=== PATIENT | female | born 1965 | race Caucasian/White ===

== ENCOUNTER 2021-04-01 09:22 | Day surgery (SDC) | payer MEDICARE ==
[~2021-04-01] VITALS: Ht 165.1 cm; Wt 127.9 kg
[~2021-04-01 09:22] MED LIST: AMIT25TA17 PO; AMIT50TA PO; CEFUROXIME 1MG/0.1ML INTRACAMERAL INJ As Ordered ONE; CENT1TAB PO; DIPH25CA32 PO; FERR325T19 PO; FOLI1TAB11 PO; FURO40TA2 PO; GABA-1171 PO; LIDOCAINE 1% SDV 5ML VIAL As Ordered ONE; LR 1,000 ML IV ONE; MAPA500C PO; METO1TAB7 PO; OYST500T94 PO; PANT40TA29 PO; ROPI0.5T3 PO; SPIR-10 PO; THIA100T22 PO
[2021-04-01] MEDS ORDERED: BSS IRR 500ML/OMIDRIA 4ML IRR BAG (OR ONLY) As Ordered ONE (09:54)
[2021-04-01] MEDS ORDERED: TROPICAMIDE 1% OPHTH SOLN 2ML OD SCH (10:05)
[2021-04-01] MEDS ORDERED: OFLOXACIN 0.3 % (OCUFLOX) OPTH SOL 5ML OD SCH (10:05)
[2021-04-01] MEDS ORDERED: PROPARACAINE 0.5% OPHTH SOL 15ML OD ONE (10:05)
[2021-04-01] MEDS: PHENYLEPHRINE 2.5% OPHTH SOL 2ML OD SCH ×2 (10:12→11:20)
[2021-04-01] MEDS ORDERED: MIDAZOLAM INJ 2MG/2ML VIAL (J2250 PER 1MG) As Ordered ONE (11:08)
[2021-04-01] MEDS ORDERED: PROVISC 10 MG/ML 0.85ML SYRINGE As Ordered ONE (11:46)
[2021-04-01] MEDS ORDERED: ACETYLCHOLINE OPHTH SOLN 1% 2ML (MIOCHOL-E) As Ordered ONE (11:47)
[2021-04-01] MEDS ORDERED: fentaNYL 100 MCG/2 ML INJECTION As Ordered ONE (11:51)
[2021-04-01 12:00] VITALS: BP 141/77
== END 2021-04-01 12:21 | disposition home or self-care (01) ==
LOC: M SDC 09:22
PROVIDERS: ATTEND Ophthalmology
DX: H25.11 Age-related nuclear cataract, right eye (principal); H59.211 Accidental puncture and laceration of right eye and adnexa during an ophthalmic procedure; I50.9 Heart failure, unspecified; I11.9 Hypertensive heart disease without heart failure; E78.5 Hyperlipidemia, unspecified; N18.4 Chronic kidney disease, stage 4 (severe); F17.218 Nicotine dependence, cigarettes, with other nicotine-induced disorders; F10.11 Alcohol abuse, in remission; J44.9 Chronic obstructive pulmonary disease, unspecified; D64.9 Anemia, unspecified; G47.33 Obstructive sleep apnea (adult) (pediatric); Z79.899 Other long term (current) drug therapy; Z88.0 Allergy status to penicillin
CPT/HCPCS: 65810; 66984; 66986; A4649; J1097; J2250; J3010; V2632

== ENCOUNTER 2021-04-29 09:36 | Day surgery (SDC) | payer MEDICARE ==
[~2021-04-29] VITALS: Ht 165.1 cm; Wt 134.6 kg
[~2021-04-29 09:36] MED LIST changes: -CEFUROXIME 1MG/0.1ML INTRACAMERAL INJ As Ordered ONE; -LR 1,000 ML IV ONE; +MIDAZOLAM INJ 2MG/2ML VIAL (J2250 PER 1MG) As Ordered ONE; +POLYTRIM OPTH DROPS 10ML As Ordered ONE; +PROPARACAINE 0.5% OPHTH SOL 15ML OS ONE
[2021-04-29] MEDS ORDERED: BSS IRR 500ML/OMIDRIA 4ML IRR BAG (OR ONLY) As Ordered ONE (09:54)
[2021-04-29] MEDS: TROPICAMIDE 1% OPHTH SOLN 2ML OS SCH ×3 (10:44→11:14)
[2021-04-29] MEDS: OFLOXACIN 0.3 % (OCUFLOX) OPTH SOL 5ML OS SCH ×3 (10:44→11:14)
[2021-04-29] MEDS: PHENYLEPHRINE 2.5% OPHTH SOL 2ML OS SCH ×3 (10:44→11:14)
[2021-04-29 12:15] VITALS: BP 127/75
== END 2021-04-29 12:30 | disposition home or self-care (01) ==
LOC: M SDC 09:36
PROVIDERS: ATTEND Ophthalmology
DX: H25.12 Age-related nuclear cataract, left eye (principal); I10 Essential (primary) hypertension; I50.9 Heart failure, unspecified; E78.5 Hyperlipidemia, unspecified; Z88.0 Allergy status to penicillin; Z79.899 Other long term (current) drug therapy; F17.218 Nicotine dependence, cigarettes, with other nicotine-induced disorders; F10.11 Alcohol abuse, in remission; G47.33 Obstructive sleep apnea (adult) (pediatric); J44.9 Chronic obstructive pulmonary disease, unspecified; D64.9 Anemia, unspecified
CPT/HCPCS: 66984; J1097; J2250; V2632

== ENCOUNTER 2024-12-19 16:13 | Outpatient (CLI) | payer MEDICARE, MEDICAID ==
[~2024-12-19] VITALS: Ht 167.6 cm; Wt 154.0 kg
[~2024-12-19 16:13] MED LIST changes: -AMIT25TA17 PO; +AMIT25TA19 PO; +DIPH-435 PO; -DIPH25CA32 PO; -LIDOCAINE 1% SDV 5ML VIAL As Ordered ONE; -MIDAZOLAM INJ 2MG/2ML VIAL (J2250 PER 1MG) As Ordered ONE; -POLYTRIM OPTH DROPS 10ML As Ordered ONE; -PROPARACAINE 0.5% OPHTH SOL 15ML OS ONE; -ROPI0.5T3 PO; +ROPI0.5T33 PO
[2024-12-19 16:40] VITALS: BP 158/78; O2SAT 94
== END 2024-12-19 17:15 | disposition home or self-care (01) ==
LOC: M INFU 16:13
PROVIDERS: ATTEND Internal Medicine Infectious Disease
DX: A04.71 Enterocolitis due to Clostridium difficile, recurrent (principal); Z88.1 Allergy status to other antibiotic agents
CPT/HCPCS: G0455; J1440

== ENCOUNTER → 2025-01-04 | Outpatient (CLI) | payer MEDICARE, MEDICAID | LOC: M SLEEP 20:00 | PROVIDERS: ATTEND Internal Medicine Pulmonary Disease | DX: R40.0 Somnolence (principal) ==